=== PATIENT | female | born 1945 | race Caucasian/White ===

== ENCOUNTER → 2016-08-20 | Outpatient (CLI) | payer MEDICARE, BC | LOC: COL.RAD 10:34 | DX: E04.2 Nontoxic multinodular goiter (principal) ==

== ENCOUNTER → 2016-08-25 | Outpatient (CLI) | payer MEDICARE, BC | LOC: MC.RAD 10:40 | DX: Z12.31 Encounter for screening mammogram for malignant neoplasm of breast (principal) ==

== ENCOUNTER → 2016-12-05 | Outpatient (CLI) | payer MEDICARE, BC | LOC: COL.VAS 09:00 | DX: I08.1 Rheumatic disorders of both mitral and tricuspid valves (principal) ==

== ENCOUNTER → 2017-04-30 | Outpatient (CLI) | payer MEDICARE, BC | LOC: COL.RAD 07:31 | DX: R10.9 Unspecified abdominal pain (principal); K21.9 Gastro-esophageal reflux disease without esophagitis; R12 Heartburn; R07.9 Chest pain, unspecified | CPT/HCPCS: A9541 ==

== ENCOUNTER → 2017-07-06 | Outpatient (CLI) | payer MEDICARE, BC | LOC: COL.RAD 13:06 | DX: E04.2 Nontoxic multinodular goiter (principal) ==

== ENCOUNTER → 2018-01-06 | Outpatient (CLI) | payer MEDICARE, BC | LOC: COL.VAS 09:54 | DX: I27.20 Pulmonary hypertension, unspecified (principal); I34.0 Nonrheumatic mitral (valve) insufficiency ==

== ENCOUNTER → 2018-01-11 | Outpatient (CLI) | payer MEDICARE, BC | LOC: MC.RAD 07:00 | DX: Z12.31 Encounter for screening mammogram for malignant neoplasm of breast (principal) ==

== ENCOUNTER → 2018-02-10 | Outpatient (CLI) | payer MEDICARE, BC | LOC: COL.RAD 11:36 | DX: R06.02 Shortness of breath (principal) ==

== ENCOUNTER → 2018-02-15 | Outpatient (CLI) | payer MEDICARE, BC | LOC: COL.VAS 09:45 | DX: I77.9 Disorder of arteries and arterioles, unspecified (principal) ==

== ENCOUNTER → 2019-02-07 | Outpatient (CLI) | payer MEDICARE, BC | LOC: MC.RAD 08:38 | DX: Z12.31 Encounter for screening mammogram for malignant neoplasm of breast (principal) ==

== ENCOUNTER 2019-11-04 14:57 | Outpatient (RCR) | payer MEDICARE, BC ==
[~2019-11-04 14:57] MED LIST: ALDACTONE 25MG25 M1 PO; ALIGN PO; AMBIEN 5MG TABLE5 MG PO; ASPIRIN E.C. 8181 MG PO; B COMPLEX & B121 TAB PO; BENTYL 20MG20 MG/TAB PO; BRILINTA90 MG PO; BYSTOLIC20 MG PO; CLEOCIN HCL300 MG PO; COZAAR100 MG PO; CRESTOR20 MG PO; CRESTOR5 MG PO; CYMBALTA 30MG30 MG PO; FIORICET 325 MG1 TA1 PO; MOBIC 7.5MG7.5 MG PO; NEXIUM 40MG40 MG PO; TIAZAC120 MG PO; VITAMIND3 5000 PO
== END 2019-11-06 | disposition home or self-care (01) ==
LOC: COL.CR
DX: Z48.812 Encounter for surgical aftercare following surgery on the circulatory system (principal); Z95.5 Presence of coronary angioplasty implant and graft

== ENCOUNTER 2020-02-06 15:55 | Outpatient (RCR) | payer SELFPAY | END 2020-02-09 | disposition home or self-care (01) | LOC: COL.CR | DX: Z02.89 Encounter for other administrative examinations (principal) ==

== ENCOUNTER → 2020-02-13 | Outpatient (CLI) | payer MEDICARE, BC | LOC: MC.RAD 13:08 | DX: Z12.31 Encounter for screening mammogram for malignant neoplasm of breast (principal) ==

== ENCOUNTER → 2020-03-09 | Outpatient (CLI) | payer MEDICARE | LOC: COL.RAD 10:55 | DX: K76.89 Other specified diseases of liver (principal); N28.1 Cyst of kidney, acquired ==

== ENCOUNTER 2020-05-11 12:35 | Outpatient (RCR) | payer SELFPAY | END 2020-05-15 | disposition home or self-care (01) | LOC: COL.CR | DX: Z02.89 Encounter for other administrative examinations (principal) ==

== ENCOUNTER 2020-08-03 17:07 | Outpatient (RCR) | payer SELFPAY | END 2020-08-14 | disposition home or self-care (01) | LOC: COL.CR | DX: Z02.89 Encounter for other administrative examinations (principal) ==

== ENCOUNTER → 2021-01-04 | Outpatient (CLI) | payer MEDICARE, BC | LOC: COL.RAD 12:31 → COL.VAS 12:31 | DX: I34.0 Nonrheumatic mitral (valve) insufficiency (principal); I27.20 Pulmonary hypertension, unspecified ==

== ENCOUNTER 2021-01-07 16:48 | Emergency (ER) | payer MEDICARE, BC ==
[~2021-01-07] VITALS: Ht 162.6 cm; Wt 68.2 kg
[2021-01-07 17:08] VITALS: TEMP 98.7
[2021-01-07 17:26] LABS: BASO % 0.6 % (0.0-2.0); EOS # 0.5 (0.0-0.7); EOS % 7.4 % (0-4.0); GRAN # 4.5 (1.4-6.5); GRAN % 66.4 % (42.2-75.2); HEMATOCRIT 41.7 % (37.0-47.0); HEMOGLOBIN 13.8 g/dl (12.5-16.0); LYMPH # 1.2 (1.2-3.4); LYMPH % 17.4 % (20.0-51.0); MEAN CELL VOLUME 92 fl (80.0-100.0); MEAN CORPUSCULAR HEMOGLOBIN 31 pg (27.0-31.0); MEAN CORPUSCULAR HGB CONC 33 g/dl (33.0-37.0); MEAN PLATELET VOLUME 9.7 fl (7.4-10.4); MONO # 0.5 (0.1-0.6); MONO % 7.6 % (1.7-9.3); PLATELET COUNT 281 K/mm3 (130-400); RED BLOOD COUNT 4.52 M/mm3 (4.10-5.30)
[2021-01-07 17:40] LABS: ALBUMIN 4.1 gm/dL (3.4-4.8); BILIRUBIN,TOTAL 0.2 mg/dL (0.2-1.2); CALCIUM 10.1 mg/dL (8.4-10.2); CREATININE, serum 0.85 mg/dL (0.57-1.11); POTASSIUM 3.8 mmol/L (3.5-4.5); TOTAL PROTEIN 7.3 gm/dL (6.2-8.1)
[2021-01-07 17:46] LABS: TROPONIN-I 0.011 ng/mL (0.00-0.033)
[2021-01-07 18:27] VITALS: BP 146/75; PULSE 58
== END 2021-01-07 18:28 | disposition home or self-care (01) ==
LOC: COL.ER 16:48
PROVIDERS: Physician Assistant
DX: I27.20 Pulmonary hypertension, unspecified (principal); I25.10 Atherosclerotic heart disease of native coronary artery without angina pectoris; G43.909 Migraine, unspecified, not intractable, without status migrainosus; Z95.5 Presence of coronary angioplasty implant and graft; Z79.82 Long term (current) use of aspirin; Z79.899 Other long term (current) drug therapy

== ENCOUNTER → 2021-04-26 | Outpatient (CLI) | payer MEDICARE, BC | LOC: MC.RAD 13:36 | DX: Z12.31 Encounter for screening mammogram for malignant neoplasm of breast (principal) ==

== ENCOUNTER → 2021-07-03 | Outpatient (CLI) | payer MEDICARE, BC | LOC: COL.RAD 13:22 | DX: M47.812 Spondylosis without myelopathy or radiculopathy, cervical region (principal); I65.23 Occlusion and stenosis of bilateral carotid arteries ==

== ENCOUNTER → 2021-07-03 | Outpatient (CLI) | payer MEDICARE, BC | LOC: MHCPAIN 12:23 | DX: M47.812 Spondylosis without myelopathy or radiculopathy, cervical region (principal); M54.2 Cervicalgia; G89.29 Other chronic pain | CPT/HCPCS: G0463 ==

== ENCOUNTER → 2021-07-15 | Outpatient (CLI) | payer MEDICARE, BC | LOC: MHCPAIN 15:00 | DX: M47.22 Other spondylosis with radiculopathy, cervical region (principal); M54.2 Cervicalgia | CPT/HCPCS: J0461; J1100; Q9967 ==

== ENCOUNTER → 2021-07-30 | Outpatient (CLI) | payer MEDICARE, BC | LOC: MHCPAIN 13:59 | DX: M47.812 Spondylosis without myelopathy or radiculopathy, cervical region (principal); M54.2 Cervicalgia; G44.86 Cervicogenic headache | CPT/HCPCS: G0463 ==

== ENCOUNTER → 2021-09-05 | Outpatient (CLI) | payer MEDICARE, BC | LOC: MHCPAIN 09:53 | DX: M47.812 Spondylosis without myelopathy or radiculopathy, cervical region (principal); M54.2 Cervicalgia; M54.12 Radiculopathy, cervical region; G44.86 Cervicogenic headache | CPT/HCPCS: G0463; J1100; Q9967 ==

== ENCOUNTER 2021-09-27 06:50 | Day surgery (SDC) | payer MEDICARE, BC ==
[2021-09-27] VITALS (154 sets, daily range): BP systolic 143–182; BP diastolic 58–124; PULSE 53–58; TEMP 98.8; O2SAT 91–97
[~2021-09-27] VITALS: Ht 162.6 cm; Wt 71.6 kg
[2021-09-27 07:55] LABS: HEMOGLOBIN 12.2 g/dl (12.5-16.0); MEAN CELL VOLUME 90 fl (80.0-100.0); MEAN CORPUSCULAR HEMOGLOBIN 30 pg (27-31); MEAN CORPUSCULAR HGB CONC 34 g/dl (33.0-37.0); MEAN PLATELET VOLUME 9.8 fl (7.4-10.4); PLATELET COUNT 215 K/mm3 (130-400); RED BLOOD COUNT 4.01 M/mm3 (4.10-5.30); REDCELL DISTRIBUTION WIDTH-CV 12.5 % (11.5-14.5)
[2021-09-27 08:05] LABS: PROTHROMBIN TIME 11.7 SECONDS (9.7-12.8)
[2021-09-27 08:08] LABS: PARTIAL THROMBOPLASTIN TIME 32.1 SECONDS (26.0-37.0)
[2021-09-27] MEDS ORDERED: CRESTOR20 MG PO (08:08)
[2021-09-27 08:09] LABS: CALCIUM 9.4 mg/dL (8.4-10.2); CREATININE, serum 0.9 mg/dL (0.57-1.11); POTASSIUM 4.2 mmol/L (3.5-4.5)
[2021-09-27] MEDS ORDERED: SPIRIVA RE2.5 MCG/Ac IH (08:09)
[2021-09-27] MEDS ORDERED: ZANAFLEX CAPSULE2 MG PO (08:11)
[2021-09-27] MEDS ORDERED: ULTRAM 50MG TAB50 MG PO (08:11)
[2021-09-27] MEDS ORDERED: ASPIRIN 81M81 MG/TA2 PO (08:13)
[2021-09-27] MEDS ORDERED: ALBUTEROL0.83 MG/ML IH (08:14)
[2021-09-27] MEDS ORDERED: 00186-0370-20 IH (08:15)
[2021-09-27] MEDS ORDERED: FIORICET 325 MG1 TA1 PO (08:23)
[2021-09-27] MEDS ORDERED: BYSTOLIC20 MG PO (08:24)
[2021-09-27] MEDS ORDERED: REFRESH DIGITAL10 ML OP (08:25)
[2021-09-27] MEDS ORDERED: LEXAPRO 10MG10 MG PO (08:26)
[2021-09-27] MEDS ORDERED: BENTYL 20MG20 MG/TAB PO (08:26)
[2021-09-27] MEDS ORDERED: NEXIUM 40MG40 MG PO (08:27)
[2021-09-27] MEDS ORDERED: COZAAR100 MG PO (08:28)
[2021-09-27] MEDS ORDERED: MOBIC15 MG PO (08:28)
[2021-09-27] MEDS ORDERED: NUCALA100 MG SQ (08:29)
[2021-09-27] MEDS ORDERED: SINGULAIR 110 MG/TAB PO (08:30)
[2021-09-27] MEDS ORDERED: NITROSTAT0.4 MG/TAB SL (08:33)
[2021-09-27] MEDS ORDERED: ZOFRAN 4MG T4 MG/TAB PO (08:33)
[2021-09-27] MEDS ORDERED: OXYGEN (08:34)
--- NOTE | 2021-09-27 09:09 | NUR ---
SEE MERGE DOCUMENTATION FOR MEDICATION ADMINISTRATION AND INTRA/POST PROCEDURE SEDATION ASSESSMETNS.
[2021-09-27] MEDS ORDERED: ISOSORBIDE MON120 MG PO (09:30)
[2021-09-27] MEDS ORDERED: APRESOLINE 25MG25 MG PO (09:31)
--- NOTE | 2021-09-27 13:00 | NUR ---
All air removed from right radial band in 2-3 ml incriments.No bleeding observed at site.Right radial dressed in coban and gauze.
--- NOTE | 2021-09-27 13:40 | NUR ---
Discharge instructions given to pt.pt verbalizes understanding.Pt escorted out via wheelchair by this nurse.
== END 2021-09-27 14:01 ==
LOC: COL.CAR 06:50
PROVIDERS: Internal Medicine Cardiovascular Disease
DX: I25.10 Atherosclerotic heart disease of native coronary artery without angina pectoris (principal)
CPT/HCPCS: J1644; J2250; J3010; Q9967

== ENCOUNTER → 2021-09-30 | Outpatient (CLI) | payer MEDICARE, BC ==
[~2021-09-30] MED LIST changes: +00186-0370-20 IH; +ALBUTEROL0.83 MG/ML IH; +APRESOLINE 25MG25 MG PO; +ASPIRIN 81M81 MG/TA2 PO; +ISOSORBIDE MON120 MG PO; +LEXAPRO 10MG10 MG PO; +MOBIC15 MG PO; +NITROSTAT0.4 MG/TAB SL; +NUCALA100 MG SQ; +OXYGEN; +REFRESH DIGITAL10 ML OP; +SINGULAIR 110 MG/TAB PO; +SPIRIVA RE2.5 MCG/Ac IH; +ULTRAM 50MG TAB50 MG PO; +ZANAFLEX CAPSULE2 MG PO; +ZOFRAN 4MG T4 MG/TAB PO
== END ==
LOC: MHCPAIN 09:50
DX: M47.812 Spondylosis without myelopathy or radiculopathy, cervical region (principal); M54.2 Cervicalgia; G44.86 Cervicogenic headache
CPT/HCPCS: G0463

== ENCOUNTER → 2022-02-11 | Outpatient (CLI) | payer MEDICARE, BC | LOC: MHCPAIN 12:47 | DX: M47.812 Spondylosis without myelopathy or radiculopathy, cervical region (principal); M54.2 Cervicalgia | CPT/HCPCS: G0463 ==

== ENCOUNTER → 2022-02-13 | Outpatient (CLI) | payer MEDICARE, BC | LOC: MHCPAIN 09:12 | DX: M47.812 Spondylosis without myelopathy or radiculopathy, cervical region (principal); M54.2 Cervicalgia; G44.86 Cervicogenic headache ==

== ENCOUNTER → 2022-07-03 | Outpatient (CLI) | payer MEDICARE | LOC: MHCPAIN 08:22 | DX: M47.812 Spondylosis without myelopathy or radiculopathy, cervical region (principal); M54.2 Cervicalgia; G44.86 Cervicogenic headache | CPT/HCPCS: J0461; J1100; J2250; J3010 ==

== ENCOUNTER → 2022-07-29 | Outpatient (CLI) | payer MEDICARE | LOC: MHCPAIN 13:11 | DX: M47.812 Spondylosis without myelopathy or radiculopathy, cervical region (principal); M54.2 Cervicalgia; G44.86 Cervicogenic headache | CPT/HCPCS: G0463 ==

== ENCOUNTER → 2023-04-23 | Outpatient (CLI) | payer MEDICARE, BC ==
[~2023-04-23] MED LIST changes: +Lidocaine PF 2% (20 MG/ML) 5 ML VIAL ONE; +Midazolam 2 MG/2 ML VIAL ONE; +ePHEDrine 50 MG/10 ML VIAL IV ONE; +fentaNYL 50 MCG/ML 2 ML VIAL ONE
== END ==
LOC: MHCPAIN 11:59
DX: M47.812 Spondylosis without myelopathy or radiculopathy, cervical region (principal); G44.86 Cervicogenic headache
CPT/HCPCS: J0665; J2250; J3010

== ENCOUNTER → 2023-07-21 | Outpatient (CLI) | payer MEDICARE, BC ==
[~2023-07-21] MED LIST changes: -Lidocaine PF 2% (20 MG/ML) 5 ML VIAL ONE; -Midazolam 2 MG/2 ML VIAL ONE; -ePHEDrine 50 MG/10 ML VIAL IV ONE; -fentaNYL 50 MCG/ML 2 ML VIAL ONE
== END ==
LOC: MHCPAIN 10:00
DX: M47.892 Other spondylosis, cervical region (principal); M54.12 Radiculopathy, cervical region; M79.18 Myalgia, other site
CPT/HCPCS: G0463